=== PATIENT | male | born 1950 | race American Indian/Alaskan Native ===

== ENCOUNTER 2017-06-04 13:33 | Outpatient (CLI) | payer MEDICAID ==
--- NOTE | 2017-06-04 15:03 | XRay Report ---
Bilateral knees, 3 views of each: Joint pain, osteoarthritis. Routine views of both knees demonstrate normal alignment with good preservation of the articular surfaces and joint spaces. The bones are well-mineralized. There is a small supra-patellar effusion on the right. There is no effusion and no swelling of either knee otherwise. Impressions: Small right suprapatellar effusion. No radiographic evidence of osteoarthritis.
== END 2017-06-04 13:34 | disposition home or self-care (01) ==
LOC: XRAY 13:33
PROVIDERS: ATTEND Family Medicine
DX: M25.461 Effusion, right knee (principal); M25.561 Pain in right knee; M25.562 Pain in left knee